=== PATIENT | female | born 1980 | race Caucasian/White ===

== ENCOUNTER → 2021-07-14 | Outpatient (CLI) | payer BC ==
[2021-07-14 14:53] LABS: BASO # 0.03 K/mm3 (0.02-0.10); EOS # 0.26 K/mm3 (0.04-0.40); EOS % 3.5 % (1.0-5.0); HEMATOCRIT 43.1 % (37.0-47.0); HEMOGLOBIN 13.9 g/dL (12.5-16.0); LYMPH# 3.02 K/mm3 (1.50-4.00); MEAN CELL VOLUME 90 fl (78-100); MEAN CORPUSCULAR HEMOGLOBIN 29 pg (27-31); MEAN CORPUSCULAR HGB CONC 32 g/dL (33-37); MEAN PLATELET VOLUME 9.9 fl (7.4-10.4); MONO # 0.57 K/mm3 (0.20-0.80); NEU # 3.51 K/mm3 (1.40-6.50); PLATELET COUNT 287 K/mm3 (130-400); RED BLOOD COUNT 4.77 M/mm3 (4.10-5.30); RED CELL DISTRIBUTION WIDTH 12.4 % (11.5-14.5); WHITE BLOOD COUNT 7.4 K/mm3 (4.8-10.8)
[2021-07-14 15:00] LABS: POTASSIUM 4.4 mmol/L (3.5-5.1); SODIUM 137 mmol/L (136-145)
[2021-07-14 15:01] LABS: ALBUMIN 4.2 g/dL (3.5-5.0)
[2021-07-14 15:02] LABS: CALCIUM 9.4 mg/dL (8.3-10.5)
[2021-07-14 15:03] LABS: GLUCOSE 84 mg/dL (65-105); TOTAL PROTEIN 7.4 g/dL (6.4-8.3)
[2021-07-14 15:04] LABS: CARBON DIOXIDE 22 mmol/L (22-29)
[2021-07-14 15:05] LABS: TOTAL BILIRUBIN 0.5 mg/dL (0.2-1.2)
[2021-07-14 15:08] LABS: AST-SGOT 12 U/L (5-34)
[2021-07-14 15:10] LABS: ALT/SGPT 11 U/L (0-55)
== END ==
LOC: LAB 14:32
PROVIDERS: Physician Assistant
DX: Z00.00 Encounter for general adult medical examination without abnormal findings (principal); Z13.29 Encounter for screening for other suspected endocrine disorder; Z13.1 Encounter for screening for diabetes mellitus

== ENCOUNTER → 2021-07-15 | Outpatient (CLI) | payer BC | LOC: RAD 07:23 | DX: R10.11 Right upper quadrant pain (principal) ==

== ENCOUNTER → 2022-10-05 | Outpatient (CLI) | payer BC ==
[2022-10-05 08:58] LABS: BASO # 0.03 K/mm3 (0.02-0.10); EOS # 0.32 K/mm3 (0.04-0.40); EOS % 4.2 % (1.0-5.0); HEMATOCRIT 42.4 % (37.0-47.0); HEMOGLOBIN 13.7 g/dL (12.5-16.0); LYMPH# 2.78 K/mm3 (1.50-4.00); MEAN CELL VOLUME 93 fl (78-100); MEAN CORPUSCULAR HEMOGLOBIN 30 pg (27-31); MEAN CORPUSCULAR HGB CONC 32 g/dL (33-37); MEAN PLATELET VOLUME 9.2 fl (7.4-10.4); MONO # 0.61 K/mm3 (0.20-0.80); NEU # 3.78 K/mm3 (1.40-6.50); PLATELET COUNT 305 K/mm3 (130-400); RED BLOOD COUNT 4.58 M/mm3 (4.10-5.30); RED CELL DISTRIBUTION WIDTH 12.9 % (11.5-14.5); WHITE BLOOD COUNT 7.6 K/mm3 (4.8-10.8)
[2022-10-05 09:06] LABS: POTASSIUM 4.6 mmol/L (3.5-5.1)
[2022-10-05 09:07] LABS: ALBUMIN 3.8 g/dL (3.5-5.0)
[2022-10-05 09:08] LABS: CALCIUM 9.1 mg/dL (8.3-10.5)
[2022-10-05 09:09] LABS: TOTAL PROTEIN 6.6 g/dL (6.4-8.3)
[2022-10-05 09:11] LABS: TOTAL BILIRUBIN 0.7 mg/dL (0.2-1.2)
== END ==
LOC: LAB 08:34
PROVIDERS: Physician Assistant
DX: Z00.00 Encounter for general adult medical examination without abnormal findings (principal); Z13.29 Encounter for screening for other suspected endocrine disorder; Z13.1 Encounter for screening for diabetes mellitus; Z23 Encounter for immunization; E78.5 Hyperlipidemia, unspecified

== ENCOUNTER → 2024-09-21 | Outpatient (CLI) | payer BC | LOC: LAB 10:37 | DX: N39.0 Urinary tract infection, site not specified (principal) ==

== ENCOUNTER → 2024-11-12 | Outpatient (CLI) | payer BC ==
[2024-11-12 08:40] LABS: BASO # 0.03 K/mm3 (0.02-0.10); EOS # 0.48 K/mm3 (0.04-0.40); EOS % 5.7 % (1.0-5.0); HEMATOCRIT 41.8 % (37.0-47.0); HEMOGLOBIN 13.8 g/dL (12.5-16.0); LYMPH# 2.83 K/mm3 (1.50-4.00); MEAN CELL VOLUME 91 fl (78-100); MEAN CORPUSCULAR HEMOGLOBIN 30 pg (27-31); MEAN CORPUSCULAR HGB CONC 33 g/dL (33-37); MEAN PLATELET VOLUME 9.4 fl (7.4-10.4); MONO # 0.57 K/mm3 (0.20-0.80); NEU # 4.45 K/mm3 (1.40-6.50); PLATELET COUNT 329 K/mm3 (130-400); WHITE BLOOD COUNT 8.4 K/mm3 (4.8-10.8)
[2024-11-12 08:49] LABS: ALBUMIN 3.9 g/dL (3.5-5.0)
[2024-11-12 08:50] LABS: CALCIUM 8.7 mg/dL (8.3-10.5)
[2024-11-12 08:51] LABS: TOTAL PROTEIN 7.4 g/dL (6.4-8.3)
[2024-11-12 08:53] LABS: TOTAL BILIRUBIN 0.7 mg/dL (0.2-1.2)
== END ==
LOC: LAB 08:27
PROVIDERS: Physician Assistant
DX: Z13.21 Encounter for screening for nutritional disorder (principal); Z13.0 Encounter for screening for diseases of the blood and blood-forming organs and certain disorders involving the immune mechanism; Z13.29 Encounter for screening for other suspected endocrine disorder; Z13.1 Encounter for screening for diabetes mellitus; E78.5 Hyperlipidemia, unspecified